=== PATIENT | female | born 1985 | race African-American/Black ===

== ENCOUNTER 2016-10-27 18:09 | Emergency (ER) | payer MEDICAID, OTHER ==
[~2016-10-27] VITALS: Ht 170.2 cm; Wt 70.4 kg
[~2016-10-27 18:09] MED LIST: PREN1CHW7 PO
[2016-10-27 18:10] VITALS: BP 172/58; PULSE 76; RESP 20; TEMP 98.5; O2SAT 99
--- NOTE | 2016-10-27 18:27 | PD ---
Physical Exam Date Seen by Provider: Oct 27, 2016 Time Seen by Provider: 18:23 Narrative 31-year-old black female 3 para 2 with a 22 week presents to emergency department for evaluation of a [facility]. She states that she feels that she was diagnosed with syphilis. No abnormal discharge, vaginal bleeding or leakage of fluid. No abdominal pain. Vital signs reviewed. Awaiting bed placement. Data Data Last Documented VS Vital Signs Date Time Temp Pulse Resp B/P (MAP) Pulse Ox O2 Delivery O2 Flow Rate FiO2 10/27/16 18:10 98.5 76 20 172/58 (96) 99 Room Air [facility] Medical Record Reviewed: No Supervised Visit with MARIJA: Melo Lopez Oct 27, 2016 18:27
--- NOTE | 2016-10-27 20:27 | PD ---
HPI Chief Complaint: Concreter Problem/Complaint Time Seen by Provider: 19:17 Travel History International Travel<30 days: No Contact w/Intl Traveler<30days: No Traveled to known affect area: No History of Present Illness HPI Patient is a 31-year-old female who presents to emergency room 22 weeks for treatment of syphilis. Patient reports that [facility] and have lab work performed. Patient was told that she has syphilis and would need to be treated in the emergency room. Patient denies any vaginal bleeding or discharge, she denies any rash. Patient with no complaints at this time. PFSH Past Medical History Medical History: Denies Significant Hx Diminished Hearing: No Tetanus Vaccination: > 5 Years Influenza Vaccination: No ?: LMP: MAY 26, 2016 - 22 WEEKS : 3 Para: 2 Past Surgical History Surgical History: No Previous Surgery Social History Alcohol Use: No Tobacco Use: No (quit ) Substance Use: No Allergies-Medications (Allergen,Severity, Reaction): Coded Allergies: penicillin G (Unverified Allergy, Severe, 10/27/16) cephalexin (Unverified Allergy, Unknown, 10/27/16) Reported Meds & Prescriptions Reported Meds & Active Scripts Active Vitafol Gummies 3.33-0.333-34.8 mg ( Vit W/ Ferric Phospha) 1 Chw Chw 1 Chew PO DAILY 30 Days Review of Systems General / Constitutional: No: Fever Eyes: No: Visual changes HENT: No: Headaches Cardiovascular: No: Chest Pain or Discomfort Respiratory: No: Shortness of Breath Gastrointestinal: No: Abdominal Pain Genitourinary: No: Dysuria Musculoskeletal: No: Pain Skin: No Rash Neurologic: No: Weakness Psychiatric: No: Depression Endocrine: No: Polydipsia Hematologic/Lymphatic: No: Easy Bruising Physical Exam Narrative GENERAL: Well-nourished, well-developed patient. SKIN: Focused skin assessment warm/dry. HEAD: Normocephalic. EYES: No scleral icterus. No injection or drainage. NECK: Supple, trachea midline. No JVD or lymphadenopathy. CARDIOVASCULAR: Regular rate and rhythm without murmurs, gallops, or rubs. RESPIRATORY: Breath sounds equal bilaterally. No accessory muscle use. GASTROINTESTINAL: Abdomen soft, non-tender, nondistended. MUSCULOSKELETAL: No cyanosis, or edema. BACK: Nontender without obvious deformity. No CVA tenderness. Data Data Last Documented VS Vital Signs Date Time Temp Pulse Resp B/P (MAP) Pulse Ox O2 Delivery O2 Flow Rate FiO2 10/27/16 18:40 18 10/27/16 18:10 98.5 76 172/58 (96) 99 Room Air Orders Orders Rapid Plasmin Reagin Screen (10/27/16 19:48) Labs Laboratory Tests Test 10/27/16 20:16 [facility] Medical Decision Making Medical Screen Exam Complete: Yes Emergency Medical Condition: Yes Interpretation(s) Vital Signs Date Time Temp Pulse Resp B/P (MAP) Pulse Ox O2 Delivery O2 Flow Rate FiO2 10/27/16 18:40 18 10/27/16 18:10 98.5 76 20 172/58 (96) 99 Room Air Differential Diagnosis Differential includes syphilis Narrative Course Patient with positive RPR at the [facility]. Patient does have a penicillin allergy - reports that the last time she had penicillin, her mouth swelled up and she broke out in a rash. Given that she is 22 weeks , and doxycycline should not be administered at this time. I reviewed case with Dr. Lee with infectious disease, request RPR screen as well as RPR with reflex to FTA abs. Plan for cultures to results prior to treatment as reflex RPR will depend on length of treatment. Discussed concern that positive RPR at the [facility] could also be a false positive. Plan for her to follow up with Dr. Aguayo or the [facility] for an outpatient treatment plan as she can undergo a PCN desensitization. This was reviewed with patient in detail, she understands that she was not treated for syphilis today and will need to follow-up for further treatment after titers have resulted. She also understands that her sexual partner will need to be treated as well Diagnosis Primary Impression: Syphilis Referrals: Carmen Aguayo MD Patient Instructions: General Instructions Additional Instructions: Please follow up with RPR with Reflex to FTA ABS which was obtained today You were not treated for syphilis today as Infectious Disease would like to wait for the Reflex FTA ABS first and decide on a treatment plan given your allergy to penicillin, please follow up with your primary care doctor or your ob /enterprise sales person first thing in the morning for earliest follow up. If you cannot follow up with Dr. Aguayo, then please contact the [facility] for follow up as your labs from today will need follow up All sexual partners will need to be treated for syphilis Please call the medical records for results of your studies from today Disposition: 01 DISCHARGE HOME Condition: Stable Lucina Reinoso DO Oct 27, 2016 20:27
[2016-10-27 22:00] VITALS: BP 156/74; PULSE 83; RESP 18; O2SAT 99
[2016-11-29] MEDS ORDERED: TERC0.4C2 VAGINAL (15:45)
== END 2016-10-27 22:35 | disposition home or self-care (01) ==
LOC: NEPE 18:09
DX: O98.112 Syphilis complicating pregnancy, second trimester (principal); Z3A.22 22 weeks gestation of pregnancy
CPT/HCPCS: 86592; 86593; 86780; 99283

== ENCOUNTER 2016-11-09 19:12 | Emergency (ER) | payer OTHER ==
--- NOTE | 2016-11-09 21:12 | PD ---
History of Present Illness Date Seen: Nov 09, 2016 Time Seen: 21:00 History of Present Illness 31-year-old black female at 24 weeks [facility]. And has known positive RPR an allergy to penicillin she presents here tonight just to see if she gets treated, she has approximately gold marker tomorrow to begin the desensitization process reevaluation to see if she truly allergic to penicillin she is not absolutely sure. We explained the patient that she needs to keep her appointment tomorrow in follow through with that process see if she can get treated with penicillin. There is nothing that we can really do tonight. heart tones are reactive for 24 weeks and no contractions noted. Regular appointment tomorrow and hopefully at some point get treated for syphilis with positive penicillin therapy IM King Seo II, MD Nov 09, 2016 21:12
--- NOTE | 2016-11-09 21:12 | PD ---
HPI Travel History International Travel<30 Days: No Contact w/Intl Traveler<30Days: No Known Affected Area: No Allergies-Medications (Allergen,Severity, Reaction): Coded Allergies: penicillin G (Unverified Allergy, Severe, 10/28/16) cephalexin (Unverified Allergy, Unknown, 10/28/16) Home Meds Active Scripts Vit W/ Ferric Phospha (Vitafol Gummies 3.33-0.333-34.8 mg) 1 Chw Chw, 1 CHEW PO DAILY for Nutritional Supplement for 30 Days, #30 CHEW 3 Refills Prov:Aleyda Castaneda 10/13/16 Physical Exam Narrative GENERAL: Well-nourished, well-developed patient. SKIN: Warm and dry. HEAD: Normocephalic and atraumatic. EYES: No scleral icterus. No injection or drainage. ENT: No nasal drainage noted. Mucous membranes pink. Airway patent. NECK: Supple, trachea midline. No JVD. CARDIOVASCULAR: Regular rate and rhythm without murmurs, gallops, or rubs. RESPIRATORY: Breath sounds equal bilaterally. No accessory muscle use. BREASTS: Bilateral exam showed no masses , no retractions, no nipple discharge. ABDOMEN/GI: Abdomen soft, non-tender, bowel sounds present, no rebound, no guarding Gravid to [-] weeks size Fundal Height: [-] GENITOURINARY: External Genitalia: intact and normal in appearance BUS glands: [-] Cervix: [-] Dilatation: [-] Effacement: [-] Station: [-] Presentation: [-] Membranes: [intact or ruptured] Uterine Contractions: [-] FHT's: Category: [-] Baseline: [-] Reactive: [-] Variability: [-] Decels: [-] EXTREMITIES: No cyanosis or edema. BACK: Nontender without obvious deformity. No CVA tenderness. NEUROLOGICAL: Awake and alert. Motor and sensory grossly within normal limits. Five out of 5 muscle strength in all muscle groups. Normal speech. MDM Diagnosis Diagnosis: Primary Impression: Positive RPR test Additional Impression: 24 weeks gestation of Disposition: 01 DISCHARGE HOME Condition: Stable Patient Instructions: General Instructions, Movement (ED), Abdominal Pain in (ED) Departure Forms: Tests/Procedures King Seo II, MD Nov 09, 2016 21:12
[2016-11-29] MEDS ORDERED: TERC0.4C2 VAGINAL (15:45)
== END 2016-11-09 21:13 | disposition home or self-care (01) ==
LOC: HOBED 19:12
DX: O26.892 Other specified pregnancy related conditions, second trimester (principal); Z3A.24 24 weeks gestation of pregnancy
CPT/HCPCS: 99283

== ENCOUNTER 2017-01-29 09:54 | Inpatient (IN) | payer OTHER ==
[2017-01-29] VITALS (23 sets, daily range): BP systolic 103–136; BP diastolic 59–99; PULSE 71–140; RESP 16–22; TEMP 98–98.1
[2017-01-29] MEDS ORDERED: LACTATED RINGER'S 1000 ML INJ 1,000 ML IV PRN (10:18)
[2017-01-29] MEDS ORDERED: LACTATED RINGER'S 1000 ML INJ 1,000 ML IV SCH (10:18)
--- NOTE | 2017-01-29 10:25 | HHI.HP ---
HPI Chief Complaint CTXs Date Seen: Jan 29, 2017 Time Seen: 10:20 Travel History International Travel<30 Days: No Contact w/Intl Traveler<30Days: No Known Affected Area: No History of Present Illness HPI 31-year-old white female 35 weeks with with active labor contractions. No ruptured membranes or bleeding. heart tones are reactive and she is dominique every 3 minutes. Weeks Gestation: 35 Para: 2 : 3 Last Menstrual Period: Jan 29, 2017 History Obstetric History Obstetric History 2 previous vaginal deliveries one Social History Alcohol Use: No Tobacco Use: No Substance Abuse: No Allergies-Medications (Allergen,Severity, Reaction): Coded Allergies: penicillin G (Unverified Allergy, Severe, 01/29/17) cephalexin (Unverified Allergy, Unknown, 01/29/17) Home Meds Active Scripts Vit W/ Ferric Phospha (Vitafol Gummies 3.33-0.333-34.8 mg) 1 Chw Chw, 1 CHEW PO DAILY for Nutritional Supplement for 30 Days, #30 CHEW 3 Refills Prov:Aleyda Castaneda CNM [facility] 10/13/16 Review of Systems General / Constitutional: No: Fever, Weight Gain, Chills, Other Eyes: No: Diploplia, Blurred Vision, Visual changes, Pain, Photophobia HENT: No: Headaches, Vertigo, Lightheadedness Cardiovascular: No: Irregular Rhythm, Chest Pain or Discomfort, Palpitations, Tachycardia, Syncope, Varicosities, Edema, Cyanosis Respiratory: No: Cough, Short of Breath, Other Gastrointestinal: Abdominal Pain, No: Nausea, Vomiting, Diarrhea Genitourinary: No: Decreased Urinary Output, Oliguria Musculoskeletal: No: Limited ROM, Weakness, Cramping, Edema, Pain Skin: No Rash, No Itching, No Dryness, No Lumps, No Change in Pigmentation, No Change in Nails, No Alopecia, No Lesions Neurologic: No: Weakness, Dizziness, Syncope, Focal Abnormalities, Coordination Problem, Headache, Slurred Speech, Seizures Psychiatric: No: Depression, Suicidal Ideations, Homicidal Ideation Endocrine: No: Heat Intolerance, Cold Intolerance, Polydipsia, Polyuria, Other Physical Exam Narrative GENERAL: Well-nourished, well-developed patient. SKIN: Warm and dry. HEAD: Normocephalic and atraumatic. EYES: No scleral icterus. No injection or drainage. ENT: No nasal drainage noted. Mucous membranes pink. Airway patent. NECK: Supple, trachea midline. No JVD. CARDIOVASCULAR: Regular rate and rhythm without murmurs, gallops, or rubs. RESPIRATORY: Breath sounds equal bilaterally. No accessory muscle use. BREASTS: Bilateral exam showed no masses , no retractions, no nipple discharge. ABDOMEN/GI: Abdomen soft, non-tender, bowel sounds present, no rebound, no guarding Gravid to [35-] weeks size Fundal Height: [35-] GENITOURINARY: External Genitalia: intact and normal in appearance BUS glands: [-] Cervix: [-] Dilatation: [8-] Effacement: [100-] Station: [-1] Presentation: [-vtx] Membranes: [intact ] Uterine Contractions: [reg-] FHT's: Category: [1-] Baseline: [133-] Reactive: [yes-] Variability: [mod-] Decels: [0-] EXTREMITIES: No cyanosis or edema. BACK: Nontender without obvious deformity. No CVA tenderness. NEUROLOGICAL: Awake and alert. Motor and sensory grossly within normal limits. Five out of 5 muscle strength in all muscle groups. Normal speech. Caprini VTE Risk Assessment Caprini VTE Risk Assessment: No/Low Risk (score <= 1) Caprini Risk Assessment Model Point Value = 1 Point Value = 2 Point Value = 3 Point Value = 5 Age 41-60 Minor surgery BMI > 25 kg/m2 Swollen legs Varicose veins or History of unexplained or recurrent spontaneous Oral contraceptives or hormone replacement Sepsis (< 1 month) Serious lung disease, including pneumonia (< 1 month) Abnormal pulmonary function Acute myocardial infarction Congestive heart failure (< 1 month) History of inflammatory bowel disease Medical patient at bed rest Age 61-74 Arthroscopic surgery Major open surgery (> 45 min) Laparoscopic surgery (> 45 min) Malignancy Confined to bed (> 72 hours) Immobilizing plaster cast Central venous access Age >= 75 History of VTE Family history of VTE Factor V Leiden Prothrombin [id number] Lupus anticoagulant Anticardiolipin antibodies Elevated serum homocysteine Heparin-induced thrombocytopenia Other congenital or acquired thrombophilia Stroke (< 1 month) Elective arthroplasty Hip, pelvis, or leg fracture Acute spinal cord injury (< 1 month) Prophylaxis Regimen Total Risk Factor Score Risk Level Prophylaxis Regimen 0-1 Low Early ambulation 2 Moderate Order ONE of the following: *Sequential Compression Device (SCD) *Heparin 5000 units SQ BID 3-4 Higher Order ONE of the following medications: *Heparin 5000 units SQ TID *Enoxaparin/Lovenox 40 mg SQ daily (WT < 150 kg, CrCl > 30 mL/min) *Enoxaparin/Lovenox 30 mg SQ daily (WT < 150 kg, CrCl > 10-29 mL/min) *Enoxaparin/Lovenox 30 mg SQ BID (WT < 150 kg, CrCl > 30 mL/min) AND/OR *Sequential Compression Device (SCD) 5 or more Highest Order ONE of the following medications: *Heparin 5000 units SQ TID (Preferred with Epidurals) *Enoxaparin/Lovenox 40 mg SQ daily (WT < 150 kg, CrCl > 30 mL/min) *Enoxaparin/Lovenox 30 mg SQ daily (WT < 150 kg, CrCl > 10-29 mL/min) *Enoxaparin/Lovenox 30 mg SQ BID (WT < 150 kg, CrCl > 30 mL/min) AND *Sequential Compression Device (SCD) Data Data Orders Orders Admit To Inpatient (01/29/17 ) Vital Signs (Adult) .Per protocol (01/29/17 10:18) Heart (01/29/17 10:18) Amnioinfusion (01/29/17 10:18) Urinary Catheter Management .ONCE (01/29/17 10:18) Lactated Ringer's 1000 Ml Inj (Lr 1000 M (01/29/17 10:18) Lactated Ringer's 1000 Ml Inj (Lr 1000 M (01/29/17 10:18) Sodium Chlorid 0.9% 500 Ml Inj (Ns 500 M (01/29/17 10:30) Sodium Chlor 0.9% 1000 Ml Inj (Ns 1000 M (01/29/17 10:38) Lidocaine 1% Inj (50 Ml) (Xylocaine 1% I (01/29/17 10:30) Citric Acid-Sodium Citrate Liq (Bicitra (01/29/17 10:30) Fentanyl Inj (Fentanyl Inj) (01/29/17 10:30) Fentanyl Inj (Fentanyl Inj) (01/29/17 10:30) Complete Blood Count With Diff (01/29/17 10:18) Hold Clot (01/29/17 10:18) Abo/Rh Blood Type (01/29/17 10:18) Urinalysis - C+S If Indicated (01/29/17 10:18) Drug Screen, Random Urine (01/29/17 10:18) Resp Oxygen Non Rebreathe Mask (01/29/17 ) ^ Epidural / Intrathecal Infus (01/29/17 10:18) Oxytocin 30 Units-500ml Premix (Pitocin (01/29/17 10:30) Lidocaine 1% Inj (50 Ml) (Xylocaine 1% I (01/29/17 10:30) Light Mineral Oil (Muri-Lube Oil) (01/29/17 10:30) Clindamycin Inj (Cleocin Inj) (01/29/17 12:30) Assessment/Plan Assessment and Plan 31-year-old black female at 35 weeks presents in active labor cervix 8 cm on admission with bulging membranes. heart tones reactive she is dominique regularly Plan is admission to labor and delivery on IV antibiotics while in labor due to positive GBS managed labor property and anticipate vaginal delivery in this precipitous labor patient King Seo II, MD Jan 29, 2017 10:25
[2017-01-29] MEDS ORDERED: LIDOCAINE HCL 1% 50 ML VIAL INFIL PRN (10:30)
[2017-01-29] MEDS ORDERED: OXYTOCIN 30 UNITS-500ML PREMIX 500 ML IV ONE (10:30)
[2017-01-29] MEDS ORDERED: LIDOCAINE HCL 1% 50 ML VIAL I-DERMAL PRN (10:30)
[2017-01-29] MEDS ORDERED: MINERAL OIL 10 ML VIAL TOPICAL PRN (10:30)
[2017-01-29] MEDS ORDERED: SODIUM CHLORID 0.9% 500 ML INJ 500 ML IV PRN (10:30)
[2017-01-29] MEDS ORDERED: CITRIC ACID-SODIUM CITRATE LIQ 30 ML UDC PO SCH (10:30)
[2017-01-29] MEDS ORDERED: SODIUM CHLOR 0.9% 1000 ML INJ 1,000 ML IV PRN (10:38)
[2017-01-29] MEDS ORDERED: ACETAMINOPHEN 325 MG TAB PO PRN (11:00)
--- NOTE | 2017-01-29 11:13 | PD.OB.DELI ---
Weeks gestation: 35 Pt started active labor?: Yes Medical induction of labor?: No Artificial rupture of membrane: No Anesthesia: None Episiotomy: None Vaginal Delivery: Normal Presentation: Occiput posterior Nuchal Cord: None Delayed cord clamping (45 sec): Yes : Female Delivery date: Jan 29, 2017 Delivery time: 10:55 One Minute : 9 Five Minute : 9 Weight: 2450g Placenta: Spontaneous delivery, Intact, 3 vessel cord Laceration: 1 deg Repair: Chromic running (3-0 chromic ) Estimated blood loss: 250cc Additional Information Supervised by Shagufta Crow MD, R3 Jan 29, 2017 11:13
[2017-01-29] MEDS ORDERED: ALUMINUM/MAGNESIUM/SIMETH 30 ML CUP PO PRN (11:15)
[2017-01-29] MEDS ORDERED: OXYTOCIN 30 UNITS-500ML PREMIX 500 ML IV SCH (11:15)
[2017-01-29] MEDS ORDERED: BENZOCAINE 20% TOPICAL SPRAY 60 ML CAN TOPICAL PRN (11:15)
[2017-01-29] MEDS ORDERED: ONDANSETRON ODT 4 MG TAB PO PRN (11:15)
[2017-01-29] MEDS ORDERED: oxyCODONE/ACETAMINOPHEN 5 MG/325 MG TAB PO PRN (11:15)
[2017-01-29] MEDS ORDERED: SODIUM CHLORIDE 0.9% FLUSH 10 ML FLUSH IV FLUSH PRN (11:15)
[2017-01-29] MEDS ORDERED: WITCH HAZEL 50%/GLYCERIN 12.5% 40 PAD JAR TOPICAL PRN (11:15)
[2017-01-29] MEDS: IBUPROFEN 800 MG TAB PO PRN ×2 (11:29→19:47)
[2017-01-29 11:36] LABS: AUTOMATED NEUTROPHIL # 8.9 TH/MM3 (1.8-7.7); BASOPHIL % 0.2 % (0.0-2.0); EOSINOPHIL # 0.1 TH/MM3 (0-0.4); EOSINOPHIL % 0.8 % (0.0-4.0); HEMATOCRIT 38.8 % (35.0-46.0); HEMOGLOBIN 12.7 GM/DL (11.6-15.3); LYMPH % 22.7 % (9.0-44.0); LYMPHOCYTE # 2.9 TH/MM3 (1.0-4.8); MEAN CELL VOLUME 82.5 FL (80.0-100.0); MEAN CORPUSCULAR HEMOGLOBIN 27.1 PG (27.0-34.0); MEAN CORPUSCULAR HGB CONC 32.8 % (32.0-36.0); MEAN PLATELET VOLUME 8.5 FL (7.0-11.0); MONO % 6.5 % (0.0-8.0); MONOCYTE # 0.8 TH/MM3 (0-0.9); NEUT % 69.8 % (16.0-70.0); PLATELET COUNT 208 TH/MM3 (150-450); RED CELL DISTRIBUTION WIDTH 13.7 % (11.6-17.2); WHITE BLOOD COUNT 12.7 TH/MM3 (4.0-11.0)
[2017-01-29 11:46] LABS: BACTERIA, URINE OCC /hpf; BILIRUBIN, URINE NEG (NEG); BLOOD, URINE SMALL (NEG); GLUCOSE,URINE NEG (NEG); KETONE, URINE NEG (NEG); MUCUS URINE FEW /lpf (OCC); NITRITE,URINE NEG (NEG); PH, URINE 7.5 (5.0-8.5); SQUAMOUS EPITHELIAL CELL URINE <1 /hpf (0-5); URINE COLOR YELLOW (YELLW/STRAW); URINE LEUKOCYTE ESTERASE MOD (NEG)
[2017-01-29] MEDS ORDERED: CLINDAMYCIN 900 MG/NS PREMIX 50 ML IV SCH (12:00)
[2017-01-29] MEDS ORDERED: CLINDAMYCIN INJ 900 MG in SODIUM CHLORIDE 0.9% INJ 100 ML IV SCH (12:30)
[2017-01-29] MEDS ORDERED: MEASLES, MUMPS, RUBELLA VACCINE 0.5 ML VIAL SQ ONE (16:00)
[2017-01-29] MEDS ORDERED: DIPHTH/TETANUS/ACEL PERTUSSIS (BOOSTER) 0.5 ML VIAL/PFS IM ONE (16:00)
[2017-01-29] MEDS ORDERED: SODIUM CHLORIDE 0.9% FLUSH 10 ML FLUSH IV FLUSH SCH (21:00)
[2017-01-29] MEDS ORDERED: ZOLPIDEM TARTRATE 5 MG TAB PO PRN (21:00)
[2017-01-30] MEDS: IBUPROFEN 800 MG TAB PO PRN ×3 (03:32→21:05)
[2017-01-30] MEDS: oxyCODONE/ACETAMINOPHEN 5 MG/325 MG TAB PO PRN ×4 (04:08→21:05)
--- NOTE | 2017-01-30 07:08 | HHI.OB ---
Subjective Post Day: 1 Remarks day # 1. AFVSS overnight. Pain well-controlled on medication. Lochia decreased. Denies dysuria. No breast tenderness. She is feeding the baby via bottle. Appetite good. No nausea or vomiting. Positive flatus.Positive bowel movement. Ambulating well. Denies calf pain, shortness of breath, or chest pain. Otherwise, she is doing well this morning and has no other complaints. Objective Vitals/I&O Vital Signs Date Time Temp Pulse Resp B/P (MAP) Pulse Ox O2 Delivery O2 Flow Rate FiO2 01/29/17 20:30 98.1 74 16 01/29/17 20:30 103/59 (74) 01/29/17 13:00 71 118/75 (89) 01/29/17 12:46 77 119/61 (80) 01/29/17 12:30 72 128/74 (92) 01/29/17 12:16 79 112/72 (85) 01/29/17 12:05 16 01/29/17 12:00 72 114/70 (85) 01/29/17 11:50 16 01/29/17 11:45 75 120/77 (91) 01/29/17 11:35 98.0 01/29/17 11:31 20 01/29/17 11:31 80 123/79 (94) 01/29/17 11:25 20 01/29/17 11:16 101 136/99 (111) 01/29/17 11:00 22 01/29/17 10:58 108 116/80 (92) 01/29/17 10:55 131 01/29/17 10:50 123 01/29/17 10:45 105 01/29/17 10:40 107 01/29/17 10:35 108 130/85 (100) 01/29/17 10:35 140 01/29/17 10:30 118 01/29/17 10:10 95 01/29/17 10:08 91 117/65 (82) Objective Remarks GENERAL: Well-nourished, well-developed patient. CARDIOVASCULAR: Regular rate and rhythm without murmurs, gallops, or rubs. RESPIRATORY: Breath sounds equal bilaterally. No accessory muscle use. ABDOMEN/GI: Abdomen soft, non-tender. Fundus: Firm, non-tender at umbilicus. GENITOURINARY: Light to moderate bleeding. EXTREMITIES: No cyanosis or edema, non-tender, without signs of DVT. Medications and IVs Current Medications Medications (Trade) Dose Ordered Sig/Ann Route Start Time Stop Time Status Last Admin (Xylocaine 1% Inj (50 ml)) 0.1 ml UNSCH X1 PRN I-DERMAL 01/29/17 10:30 02/01/17 10:29 (Bicitra Liq) 30 ml MILL DRESSER PO 01/29/17 10:30 02/02/17 10:29 (Xylocaine 1% Inj (50 ml)) 10 ml UNSCH X1 PRN INFIL 01/29/17 10:30 01/31/17 10:29 (NS Flush) 2 ml BID IV FLUSH 01/29/17 21:00 (NS Flush) 2 ml UNSCH PRN IV FLUSH 01/29/17 11:15 (Tylenol) 650 mg Q4H PRN PO 01/29/17 11:00 (Motrin) 800 mg Q8H PRN PO 01/29/17 11:15 01/30/17 03:32 (Percocet 5-325 Mg) 1 tab Q4H PRN PO 01/29/17 11:15 01/30/17 04:08 (Percocet 5-325 Mg) 2 tab Q4H PRN PO 01/29/17 11:15 (Americaine 20% Top Spr) 1 spray Q4H PRN TOPICAL 01/29/17 11:15 (Tucks Pads) 1 applic QID PRN TOPICAL 01/29/17 11:15 (Shania-Colace) 2 tab Q12HR PRN PO 01/29/17 12:00 (Ambien) 5 mg HS PRN PO 01/29/17 21:00 01/29/17 19:48 (Mag-Al Plus Susp Liq) 15 ml Q8H PRN PO 01/29/17 11:15 (Zofran Odt) 4 mg Q6H PRN PO 01/29/17 11:15 Assessment/Plan Assessment and Plan 31 y/o female who is PPD#1 s/p -Continue routine care -Motrin and Percocet PRN for pain -Pericolase PRN for constipation -Encouraged OOB. Advised pelvic rest for 6 wks -Will need a follow-up appointment within 6 wks for post- check -Re: ctrl - patient has signed papers for bilateral tubal ligation Discussed with Dr. Seo Discharge Planning Plan to discharge home in 1 day Diane Zheng MD R2 Jan 30, 2017 07:08
[2017-01-30 08:15] VITALS: BP 107/74; PULSE 74; RESP 18; TEMP 98.7
[2017-01-30 19:40] VITALS: BP 99/55; PULSE 67; RESP 18
[2017-01-30 19:41] VITALS: TEMP 98.3
[2017-01-30] MEDS: DOCUSATE SODIUM 50 MG/SENNA 8.6 MG TAB PO PRN (21:07)
[2017-01-31] MEDS: IBUPROFEN 800 MG TAB PO PRN (05:10)
[2017-01-31] MEDS: oxyCODONE/ACETAMINOPHEN 5 MG/325 MG TAB PO PRN ×2 (05:10→11:53)
[2017-01-31 08:00] VITALS: BP 104/71; PULSE 72; RESP 7; TEMP 97.6; O2SAT 99
--- NOTE | 2017-01-31 09:35 | HHI.OB ---
Subjective Post Day: 2 Remarks 31 y/o F @ 35w, PTL w/ with no complications, now PPD#2. Pt has been ambulating and voiding without difficulty. Pt denies CP/SOB/Dizziness. Minimal lochia. Pain well-controlled on current medications. Objective Vitals/I&O Vital Signs Date Time Temp Pulse Resp B/P (MAP) Pulse Ox O2 Delivery O2 Flow Rate FiO2 01/31/17 08:00 72 104/71 (82) 01/31/17 08:00 7 01/31/17 08:00 97.6 99 01/30/17 22:05 18 01/30/17 22:05 18 01/30/17 19:41 98.3 01/30/17 19:40 67 99/55 (70) 01/30/17 19:40 18 Objective Remarks GENERAL: Well-nourished, well-developed patient. CARDIOVASCULAR: Regular rate and rhythm without murmurs, gallops, or rubs. RESPIRATORY: Breath sounds equal bilaterally. No accessory muscle use. ABDOMEN/GI: Abdomen soft, non-tender. Fundus: Firm, non-tender at umbilicus. GENITOURINARY: Light to moderate bleeding. EXTREMITIES: No cyanosis or edema, non-tender, without signs of DVT. Medications and IVs Current Medications Medications (Trade) Dose Ordered Sig/Ann Route Start Time Stop Time Status Last Admin (Xylocaine 1% Inj (50 ml)) 0.1 ml UNSCH X1 PRN I-DERMAL 01/29/17 10:30 02/01/17 10:29 (Bicitra Liq) 30 ml SUPPLEMENTAL MANAGER PO 01/29/17 10:30 02/02/17 10:29 (Xylocaine 1% Inj (50 ml)) 10 ml UNSCH X1 PRN INFIL 01/29/17 10:30 01/31/17 10:29 (NS Flush) 2 ml BID IV FLUSH 01/29/17 21:00 (NS Flush) 2 ml UNSCH PRN IV FLUSH 01/29/17 11:15 (Tylenol) 650 mg Q4H PRN PO 01/29/17 11:00 (Motrin) 800 mg Q8H PRN PO 01/29/17 11:15 01/31/17 05:10 (Percocet 5-325 Mg) 1 tab Q4H PRN PO 01/29/17 11:15 01/31/17 05:10 (Percocet 5-325 Mg) 2 tab Q4H PRN PO 01/29/17 11:15 (Americaine 20% Top Spr) 1 spray Q4H PRN TOPICAL 01/29/17 11:15 01/30/17 21:07 (Tucks Pads) 1 applic QID PRN TOPICAL 01/29/17 11:15 01/30/17 21:07 (Shania-Colace) 2 tab Q12HR PRN PO 01/29/17 12:00 01/30/17 21:07 (Ambien) 5 mg HS PRN PO 01/29/17 21:00 01/29/17 19:48 (Mag-Al Plus Susp Liq) 15 ml Q8H PRN PO 01/29/17 11:15 (Zofran Odt) 4 mg Q6H PRN PO 01/29/17 11:15 Assessment/Plan Assessment and Plan 31 y/o female who is PPD#2 s/p -Continue routine care, D/C today -Motrin PRN for pain -Senna PRN for constipation -Encouraged OOB. Advised pelvic rest for 6 wks -Will need a follow-up appointment within 6 wks for post- check - control plan: pt to go to [facility] to schedule BTL Discussed with Dr. Waterman Discharge Planning Plan to discharge home in 1 day Josselin Burdick MD R2 Jan 31, 2017 09:35
[2017-01-31] MEDS ORDERED: IBUP1TAB7 PO (09:36)
[2017-01-31] MEDS ORDERED: PERI PO (09:36)
--- NOTE | 2017-01-31 09:38 | HHI.DCPOC ---
Discharge Care Plan Diagnosis: (1) Vaginal delivery (2) Depression with suicidal ideation (3) Adjustment disorder Report Symptoms to Your Doctor -Temperature above 100.5 degrees -Redness, of incision or excessive or foul smelling drainage -Unusual pain or calf pain -Increased vaginal bleeding -Painful or difficulty urinating -Feelings of extreme sadness or anxiety after 2 weeks Goals to Promote Your Health * To prevent worsening of your condition and complications * To maintain your health at the optimal level Directions to Meet Your Goals Take your medications as prescribed Follow your dietary instruction Follow activity as directed Ensure plenty of rest for recovery Drink fluids for hydration Keep your appointments as scheduled Take your immunizations and boosters as scheduled If your symptoms worsen call your PCP, if no PCP go to Urgent Care Center or Emergency Room Smoking is Dangerous to Your Health. Avoid second hand smoke Call the 24-hour crisis hotline for domestic abuse at Josselin Burdick MD R2 Jan 31, 2017 09:38
[2017-01-31] MEDS: DOCUSATE SODIUM 50 MG/SENNA 8.6 MG TAB PO PRN (11:54)
== END 2017-01-31 12:22 | disposition home or self-care (01) | DRG 775 ==
LOC: HOBED 09:54 → H2EB 10:22 → H1EA 13:14
PROVIDERS: ADMIT Obstetrics & Gynecology Maternal & Fetal Medicine; ATTEND Obstetrics & Gynecology Maternal & Fetal Medicine
PROC: 10E0XZZ Delivery of Products of Conception, External Approach (ICD-10-PCS; principal; 2017-01-29)
PROC: 0HQ9XZZ Repair Perineum Skin, External Approach (ICD-10-PCS; 2017-01-29)
DX: O60.14X0 Preterm labor third trimester with preterm delivery third trimester, not applicable or unspecified (principal); O99.824 Streptococcus B carrier state complicating childbirth; O70.0 First degree perineal laceration during delivery; O62.3 Precipitate labor; Z3A.35 35 weeks gestation of pregnancy; Z37.0 Single live birth
CPT/HCPCS: 80307; 81001; 85025; 88307; 90715